=== PATIENT | female | born 1990 | race Caucasian/White ===

== ENCOUNTER 2022-06-30 16:24 | Emergency (ER) | payer OTHER ==
[~2022-06-30] VITALS: Ht 170.2 cm; Wt 79.3 kg
[2022-06-30] MEDS ORDERED: PRENTAB9 PO (16:52)
[2022-06-30 19:46] LABS: BASO # 0.1 10^3/uL (0.0-0.2); BASO % 0.6 % (0.0-1.0); EOS # 0.1 10^3/uL (0.0-0.5); EOS % 1.1 % (0.0-3.0); HEMATOCRIT 40.6 % (36.0-47.0); HEMOGLOBIN 13.3 g/dl (12.0-15.5); LYMPH # 2.2 10^3/uL (1.5-5.0); LYMPH % 21.5 % (24.0-44.0); MEAN CORPUSCULAR HEMOGLOBIN 28.6 pg (27.0-33.0); MEAN CORPUSCULAR HGB CONC 32.8 g/dl (32.0-36.5); MEAN CORPUSCULAR VOLUME 87.3 fl (80.0-96.0); MONO # 0.6 10^3/uL (0.0-0.8); MONO % 6.2 % (2.0-8.0); NEUTROPHILS % 70.3 % (36.0-66.0); PLATELET COUNT, AUTOMATED 246 10^3/uL (150-450); RED BLOOD COUNT 4.65 10^6/uL (4.00-5.40)
[2022-06-30 19:51] LABS: CHLORIDE LEVEL 102 MMOL/L (98-107); POTASSIUM SERUM 3.9 MMOL/L (3.5-5.1); SODIUM LEVEL 137 MMOL/L (136-145)
[2022-06-30 19:52] LABS: CARBON DIOXIDE LEVEL 25 MMOL/L (20-31)
[2022-06-30 19:57] LABS: BLOOD UREA NITROGEN 11 MG/DL (9-23); CALCIUM LEVEL 9.6 MG/DL (8.5-10.1); GLUCOSE, FASTING 121 MG/DL (60-100)
[2022-06-30 19:59] LABS: CREATININE FOR GFR 0.58 MG/DL (0.55-1.30); GLOMERULAR FILTRATION RATE > 60.0 (>60)
[2022-06-30 20:10] LABS: HCG, SERUM QUANTITATIVE 5637.3 MIU/ML (<4.2)
[2022-06-30] MEDS ORDERED: ACETAMINOPHEN 500 MG TAB PO ONE (23:45)
[2022-07-01 01:35] VITALS: BP 123/64
[2022-07-01] MEDS ORDERED: MISO200T56 PO (14:23)
== END 2022-07-01 01:38 | disposition home or self-care (01) ==
LOC: M ED 16:24
DX: O20.8 Other hemorrhage in early pregnancy (principal); O34.81 Maternal care for other abnormalities of pelvic organs, first trimester

== ENCOUNTER 2022-07-01 09:30 | Emergency (ER) | payer OTHER ==
[~2022-07-01] VITALS: Ht 170.2 cm; Wt 81.4 kg
[~2022-07-01 09:30] MED LIST: PRENTAB9 PO
[2022-07-01] MEDS ORDERED: NS 1,000 ML IV ONE (11:00)
[2022-07-01] MEDS ORDERED: ACETAMINOPHEN 325 MG TAB PO ONE (11:55)
[2022-07-01 12:11] LABS: BASO % 0.2 % (0.0-1.0); HEMATOCRIT 37.4 % (36.0-47.0); HEMOGLOBIN 12.5 g/dl (12.0-15.5); LYMPH # 0.5 10^3/uL (1.5-5.0); LYMPH % 2.7 % (24.0-44.0); MEAN CORPUSCULAR HEMOGLOBIN 29.3 pg (27.0-33.0); MEAN CORPUSCULAR HGB CONC 33.4 g/dl (32.0-36.5); MEAN CORPUSCULAR VOLUME 87.6 fl (80.0-96.0); MONO # 0.7 10^3/uL (0.0-0.8); MONO % 3.9 % (2.0-8.0); NEUTROPHILS # 17.4 10^3/uL (1.5-8.5); NEUTROPHILS % 92.4 % (36.0-66.0); PLATELET COUNT, AUTOMATED 230 10^3/uL (150-450); RED BLOOD COUNT 4.27 10^6/uL (4.00-5.40); WHITE BLOOD COUNT 18.8 10^3/uL (4.0-10.0)
[2022-07-01 12:38] LABS: BLOOD UREA NITROGEN 10 MG/DL (9-23); CALCIUM LEVEL 8.9 MG/DL (8.5-10.1); CARBON DIOXIDE LEVEL 24 MMOL/L (20-31); CHLORIDE LEVEL 104 MMOL/L (98-107); CREATININE FOR GFR 0.58 MG/DL (0.55-1.30); GLOMERULAR FILTRATION RATE > 60.0 (>60); GLUCOSE, FASTING 108 MG/DL (60-100); POTASSIUM SERUM 4.2 MMOL/L (3.5-5.1); SODIUM LEVEL 138 MMOL/L (136-145)
[2022-07-01] MEDS ORDERED: MISO200T56 PO (14:23)
[2022-07-01] MEDS ORDERED: KETOROLAC 30 MG/ML 1ML VIAL IV ONE (14:25)
[2022-07-01 14:31] VITALS: BP 129/64
== END 2022-07-01 15:05 | disposition home or self-care (01) ==
LOC: M ED 09:30
DX: O03.9 Complete or unspecified spontaneous abortion without complication (principal); O20.8 Other hemorrhage in early pregnancy; O34.80 Maternal care for other abnormalities of pelvic organs, unspecified trimester; Z87.891 Personal history of nicotine dependence; O99.320 Drug use complicating pregnancy, unspecified trimester; Z3A.11 11 weeks gestation of pregnancy
CPT/HCPCS: 76801; 76817; 80048; 81000; 81015; 84702; 85025; 87086; 88305; 93976; 96361; 96374; 99284; J1885